=== PATIENT | female | born 1980 | race Caucasian/White ===

== ENCOUNTER 2023-04-01 15:36 | Emergency (ER) | payer BC ==
[2023-04-01 15:52] VITALS: BP 124/80; PULSE 68
[2023-04-01] MEDS ORDERED: Sodium Chloride 0.9% 10 ML Syringe FLUSH PRN (15:54)
[2023-04-01] MEDS ORDERED: Famotidine 20 MG/2 ML SDV IVPUSH ONE (15:56)
[2023-04-01 16:17] LABS: BASOPHILS ABSOLUTE AUTO 0.03 K/mm3 (0.01-0.08); BASOPHILS PERCENT AUTO 0.3 % (0.1-1.2); EOSINOPHILS ABSOLUTE AUTO 0.08 K/mm3 (0.04-0.36); EOSINOPHILS PERCENT AUTO 0.8 (0.7-5.8); HEMATOCRIT 40.8 % (34.1-44.9); HEMOGLOBIN 13.5 gm/dl (11.2-15.7); IMMATURE GRAN ABSOLUTE AUTO 0.01 K/mm3 (0.00-0.10); IMMATURE GRAN PERCENT AUTO 0.1 % (<=1.0); LYMPHOCYTES PERCENT AUTO 24.1 % (19.3-51.7); MEAN CORPUSCULAR HEMOGLOBIN 30.9 pg (25.6-32.2); MEAN CORPUSCULAR HGB CONC 33.1 g/dl (32.2-35.5); MEAN CORPUSCULAR VOLUME 93.4 fl (79.4-94.8); MEAN PLATELET VOLUME 10.4 fl (9.4-12.3); MONOCYTES ABSOLUTE AUTO 1.04 K/mm3 (0.24-0.36); MONOCYTES PERCENT AUTO 10.5 % (4.7-12.5); NEUTROPHILS ABSOLUTE AUTO 6.38 K/mm3 (1.56-6.13); NEUTROPHILS PERCENT AUTO 64.2 % (34.0-71.1); PLATELET COUNT,PLT 249 K/mm3 (182-369); RED BLOOD CELL COUNT 4.37 M/mm3 (3.98-5.22); WHITE BLOOD CELL COUNT,WBC 9.94 K/mm3 (3.98-10.04)
[2023-04-01 16:32] LABS: A/G RATIO 1.2 (1-2); ALBUMIN 3.8 g/dl (3.4-5.0); ANION GAP 12.1 (5-15); BILIRUBIN TOTAL 0.3 mg/dL (0.2-1.0); CALCIUM 8.8 mg/dL (8.5-10.1); CREATININE 0.8 mg/dL (0.55-1.02); EST CRCL DRUG DOSING (CG) 84.88 mL/min; POTASSIUM,K 3.1 mEq/L (3.5-5.1); PROTEIN TOTAL,TP 7.1 g/dl (6.4-8.2)
== END 2023-04-01 18:21 | disposition home or self-care (01) ==
LOC: JD.ED 15:36
DX: R07.89 Other chest pain (principal); Z88.0 Allergy status to penicillin; Z88.8 Allergy status to other drugs, medicaments and biological substances
CPT/HCPCS: 36415; 71045; 80053; 84484; 85025; 85379; 93005; 99285; J3490; 93010; 99284

== ENCOUNTER 2025-05-21 20:07 | Emergency (ER) | payer BC ==
[2025-05-21 22:07] VITALS: BP 116/82; PULSE 56
== END 2025-05-21 21:30 | disposition home or self-care (01) ==
LOC: JD.ED 20:07
DX: T18.9XXA Foreign body of alimentary tract, part unspecified, initial encounter (principal); Z88.0 Allergy status to penicillin; Z88.6 Allergy status to analgesic agent; Z79.899 Other long term (current) drug therapy
CPT/HCPCS: 99283

== ENCOUNTER 2025-06-18 06:49 | Day surgery (SDC) | payer BC ==
[~2025-06-18 06:49] MED LIST: Sodium Chloride 0.9% 10 ML Syringe FLUSH PRN; Sodium Chloride 0.9% 10 ML Syringe FLUSH SCH
[2025-06-18] MEDS ORDERED: Midazolam 1 MG/ML 2 ML SDV ONE (07:01)
[2025-06-18] MEDS ORDERED: Propofol 200 MG/20 ML SDV ONE (07:01)
[2025-06-18] MEDS ORDERED: Lidocaine 1% 2 ML ONE (07:01)
[2025-06-18] MEDS ORDERED: Lidocaine 1% PF 2 ML SDV ONE (07:01)
[2025-06-18] MEDS: Lactated Ringers 1,000 ML IV SCH (07:05)
[2025-06-18 09:00] VITALS: BP 109/79; PULSE 72
== END 2025-06-18 08:54 | disposition home or self-care (01) ==
LOC: JD.SDS 06:49
PROVIDERS: ATTEND Surgery
DX: Z12.11 Encounter for screening for malignant neoplasm of colon (principal); K21.9 Gastro-esophageal reflux disease without esophagitis; Z88.8 Allergy status to other drugs, medicaments and biological substances; Z88.0 Allergy status to penicillin; Z79.899 Other long term (current) drug therapy
CPT/HCPCS: G0121; J2003; J2250; J2704; J7120